=== PATIENT | male | born 1980 | race Caucasian/White ===

== ENCOUNTER 2025-04-08 20:01 | Emergency (ER) | payer OTHER ==
[~2025-04-08] VITALS: Ht 185.4 cm; Wt 97.7 kg
[2025-04-08 20:09] VITALS: BP 134/90; PULSE 98; RESP 16; O2SAT 98
[2025-04-08] MEDS: LIDOcaine 1% W/epiNEPHrine 1:100,000 20ml vial SQ STA (20:41)
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
[2025-04-08 23:41] VITALS: TEMP 98.6
== END 2025-04-08 23:43 | disposition home or self-care (01) ==
LOC: ER 20:02
DX: S01.81XA Laceration without foreign body of other part of head, initial encounter (principal); V89.2XXA Person injured in unspecified motor-vehicle accident, traffic, initial encounter; Y93.89 Activity, other specified; Y92.89 Other specified places as the place of occurrence of the external cause; Y99.8 Other external cause status
CPT/HCPCS: 12013; 99282; A6449